=== PATIENT | female | born 1995 | race Caucasian/White ===

== ENCOUNTER 2017-03-29 18:42 | Emergency (ER) | payer BC ==
[~2017-03-29] VITALS: Ht 175.3 cm; Wt 75.3 kg
[2017-03-29 18:54] VITALS: BP 105/64
== END 2017-03-29 21:14 | disposition home or self-care (01) ==
LOC: ER 18:47
DX: Z13.89 Encounter for screening for other disorder (principal)
CPT/HCPCS: 99281; A4606; Z7610; Z7502